=== PATIENT | female | born 1990 | race Caucasian/White ===

== ENCOUNTER 2017-05-29 19:19 | Inpatient (IN) | payer MEDICAID, OTHER ==
[2017-05-29 19:59] LABS: SQUAMOUS EPITHIAL 3 /hpf (0-5); URINE BILIRUBIN NEGATIVE (NEGATIVE); URINE BLOOD NEGATIVE (NEGATIVE); URINE CLARITY Hazy (Clear); URINE COLOR Yellow (YELLOW); URINE GLUCOSE (UA) NORMAL (Normal); URINE LEUKOCYTE ESTERASE NEG Leu/uL (Negative); URINE PROTEIN NEGATIVE (NEGATIVE)
[2017-05-29 20:00] LABS: HCG,QUALITATIVE URINE POSITIVE (NEGATIVE)
[2017-05-29 20:04] LABS: BASO % 0.2 % (0.0-2.0); EOS # 0.2 K/uL (0.0-0.7); EOS % 1.1 % (0.0-4.0); HEMOGLOBIN 11.4 g/dL (11.0-16.0); LYMPH # 2.1 K/uL (1.0-4.3); LYMPH % 12.7 % (20.0-40.0); MEAN CORPUSCULAR HEMOGLOBIN 30.7 pg (27.0-31.0); MEAN CORPUSCULAR HGB CONC 33.7 g/dL (33.0-37.0); MEAN PLATELET VOLUME 8.6 fL (7.2-11.7); MONO # 1.3 K/uL (0.0-0.8); MONO % 7.9 % (0.0-10.0); NEUT # 13.3 K/uL (1.8-7.0); NEUT % 78.1 % (50.0-75.0); NRBC % 0.1 % (0.0-2.0); RBC 3.72 Mil/uL (3.80-5.20); RED CELL DISTRIBUTION WIDTH 14.3 % (11.5-14.5)
[2017-05-29 20:14] LABS: MEAN CELL VOLUME 91.2 fL (81.0-99.0)
[2017-05-29 20:16] LABS: ALB/GLOB RATIO 1.1 (1.0-2.1); ALBUMIN 4.3 g/dL (3.5-5.0); ALT/SGPT 33 U/L (9-52); AST/SGOT 18 U/L (14-36); BLOOD UREA NITROGEN 6 mg/dL (7-17); CALCIUM 9.4 mg/dl (8.6-10.4); GFR AFRICAN-AMERICAN > 60; GFR NON-AFRICAN AMERICAN > 60
[2017-05-29 20:17] LABS: BARBITURATES, UR NEGATIVE (NEGATIVE); BENZODIAZEPINES, UR NEGATIVE (NEGATIVE); OPIATES, UR NEGATIVE (NEGATIVE); PHENCYCLIDINE, UR NEGATIVE (NEGATIVE)
--- NOTE | 2017-05-29 20:33 | C.PDOC ---
History Of Present Illness 26yo female, EGA of 1 week, presents to ED requesting detoxification from percocets. Patient reports last use was 20mg at 9am today. She denies any chest pain, shortness of breath, abdominal pain, suicidal or homicidal ideation. She has no medical complaints. pt states she had us recently, "which did not show anything". on antibiotics for uti. no vomiting. Time Seen by Provider: 05/29/17 19:56 Chief Complaint (Nursing): Psychiatric Evaluation History Per: Patient History/Exam Limitations: no limitations Associated Symptoms: denies: Suicidal Thoughts, Suicidal Plan Past Medical History Reviewed: Historical Data, Nursing Documentation, Vital Signs Vital Signs: Last Vital Signs Temp 98.6 F 05/30/17 16:32 Pulse 93 H 05/30/17 16:32 Resp 18 05/30/17 16:32 BP 128/88 05/30/17 16:32 Pulse Ox 96 05/30/17 16:32 - Medical History PMH: No Chronic Diseases Surgical History: No Surg Hx Family History: States: No Known Family Hx - Social History Hx Alcohol Use: No Hx Substance Use: Yes Review Of Systems Except As Marked, All Systems Reviewed And Found Negative. Constitutional: Negative for: Fever, Chills Cardiovascular: Negative for: Chest Pain Respiratory: Negative for: Shortness of Breath Gastrointestinal: Negative for: Abdominal Pain Psych: Negative for: Suicidal ideation Physical Exam - Physical Exam Appears: Non-toxic, No Acute Distress Skin: Normal Color, Warm, Dry Head: Atraumatic, Normacephalic Eye(s): bilateral: Normal Inspection, PERRL, EOMI Neck: Normal ROM, Supple Chest: Symmetrical Cardiovascular: Rhythm Regular Respiratory: Normal Breath Sounds, No Wheezing Gastrointestinal/Abdominal: Normal Exam, Soft, No Tenderness Back: Normal Inspection Extremity: Normal ROM, No Deformity Neurological/Psych: Oriented x3, Normal Speech, Normal Cognition ED Course And Treatment - Laboratory Results Result Diagrams: 05/29/17 19:58 05/29/17 19:58 O2 Sat by Pulse Oximetry: 97 (RA) Pulse Ox Interpretation: Normal Medical Decision Making Medical Decision Making: Impression: Detox from percocet. Plan: -- Labs -- US Transvaginal Time: [address] Roth OBGYN internal combustion engine assembler who will consult on the patient. noted leukocytosi, abd soft no ttp, pt reports on antibiotics for uti. suspect early , gs visualized., no ys/fp. no cardiopulm complaints. non specific leukocytosis. lungs clear. no vomiting in er. Disposition - Disposition Disposition: HOSPITALIZED Disposition Time: 23:01 Condition: STABLE - Clinical Impression Clinical Impression: Opiate use, Leukocytosis - Scribe Statement The provider has reviewed the documentation as recorded by the Scribe (Francisca Hernández) Provider Attestation: All medical record entries made by the Scribe were at my direction and personally dictated by me. I have reviewed the chart and agree that the record accurately reflects my personal performance of the history, physical exam, medical decision making, and the department course for this patient. I have also personally directed, reviewed, and agree with the discharge instructions and disposition. Decision To Admit - Pt Status Changed To: Hospital Disposition Of: Inpatient - Admit Certification Admit to Inpatient:: After my assessment, the patient will require hospitalization for at least two midnights. This is because of the severity of symptoms shown, intensity of services needed, and/or the medical risk in this patient being treated as an outpatient. - InPatient: Physician Admission Certification: I certify that this patient requires 2 or more midnights of care for the following reason:: needs detox - . Bed Request Type: Detox Admitting Physician: Coby Roblero Patient Diagnosis: Opiate use, Leukocytosis
--- NOTE | 2017-05-29 22:38 | US ---
EXAM: US First Trimester, Transabdominal US , Transvaginal EXAM DATE/TIME: 05/29/2017 8:01 PM CLINICAL HISTORY: 26 years old, female; Pain; Other: Abd pain; LMP: 2-7-18; ; Patient HX: Beta 2567.60; Additional info: Abd pain and TECHNIQUE: Real-time transabdominal and transvaginal obstetrical ultrasound of the maternal pelvis and a first trimester with image documentation. Transvaginal imaging was used for better evaluation of the fetus and adnexa. COMPARISON: There are no prior studies for comparison. FINDINGS: Gestation: There is a small gestational sac in the uterus.Gestational sac has mean diameter 5.5 mm. pole and yolk sac are not yet visible. Uterus: The uterus is anteflexed. Uterus measures approximately 9 x 4 x 5 cm. Endometrium is thickened 15.7 mm in width. There is a nabothian cyst in the cervix. Right ovary: Right ovary measures approximately 3.4 x 2.9 by 3 cm. There is a corpus luteum in the right ovary.There is expected blood flow on Doppler imaging Left ovary: Left ovary measures approximately 3 x 2.3 x 1.6 cm.There is expected blood flow on Doppler imaging Free fluid: There is trace free fluid. Bladder: Bladder is almost empty. IMPRESSION: Intrauterine gestation too early to date; right corpus luteum
[2017-05-30] MEDS ORDERED: Buprenorphine Hydrochloride 2 mg SL ONE ×2 (06:14→08:00)
[2017-05-30] MEDS ORDERED: Buprenorphine Hydrochloride 8 mg SL ONE (08:00)
[2017-05-30] MEDS: Multiple Vitamins Tab PO SCH (09:17)
--- NOTE | 2017-05-30 20:42 | PCM.PSYCH ---
Initial Psychiatric Evaluation - Initial Psychiatric Evaluation Type of Admission: Voluntary Legal Status: Capacity Chief Complaint (in patient's own words): I need help for my Percocet use. I want to stop using Percocet. History of Present Illness and Precipitating Events: Patient is a 26 years old, single, unemployed, female who was admitted for treatment of withdrawing from Percocet. Patient was also more than 4 weeks. Patient reported he was using cannabis since 12 years of age, was using every day, up to 8 g of cannabis daily. Last use reported yesterday. According to patient she was diagnosed with cannabinoid hyperemesis syndrome at [facility]. Also reported using Percocet, started about 4 months ago and was using up to 80- 100 mg of Percocet daily, buying from [facility]. Last use reported yesterday, 30 mg. Patient has history of right knee meniscal repair. Patient was born in [place], has high school graduation, working. Never , has one 7 years old daughter. Lives alone. Height is 5 feet and 4 inches and weight 182 pounds. Current Medications: Active Medications Generic Name Dose Route Start Last Admin Trade Name Freq PRN Reason Stop Dose Admin Acetaminophen 650 mg 05/30/17 01:09 05/30/17 01:35 Tylenol 325mg Tab PO 650 mg Q6 PRN Administration Pain, Mild (1-3) Diphenhydramine HCl 50 mg 05/30/17 01:08 05/30/17 17:14 Benadryl PO 50 mg Q6 PRN Administration Agitation Metoclopramide HCl 5 mg 05/30/17 01:16 05/30/17 01:38 Reglan PO 5 mg Q6 PRN Administration Nausea/Vomiting Multivitamins 1 tab 05/30/17 10:00 05/30/17 09:17 Hexavitamin PO Not Given DAILY JOSEPH Past Psychiatric History - Past Psychiatric History Previous Treatment History: None History of Abuse: None reported History of ETOH/Drug Use: See HPI History of Family Illness: Reported her paternal uncle has history of schizophrenia, mother has history of heroine use, maternal aunt has history of heroine use disorder. Pertinent Medical Hx (Current Medical&Sleep Prob, Allergies): Allergies Allergy/AdvReac Type Severity Reaction Status Date / Time No Known Allergies Allergy Verified 05/29/17 19:36 Bentyl 05/29/17 05/29/17 Protonix 05/29/17 Reglan 05/29/17 Zofran 05/29/17 Review of Systems - Psychiatric Psychiatric: Anxiety Mental Status Examination - Personal Presentation Personal Presentation: Looks stated age - Affect Affect: Other (Appropriate) - Motor Activity Motor Activity: Calm - Reliability in Providing Information Reliability in Providing Information: Fair - Speech Speech: Relevant - Mood Mood: Anxious - Formal Thought Process Formal Thought Process: No Impairment Additional comments: None reported - Hallucinations/Delusions Hallucinations: Other (None reported) Delusions: Other - Obsessions/Compulsions Obsessions: None Compulsions: None - Cognitive Functions Orientation: Person, Place, Situation, Time Sensorium: Alert Abstract Thinking: [place] Estimate of Intelligence: Average Judgement: Intact, as evidence by: Insight regarding need for hospitalization Memory: Recent intact, as evidence by: Ability to recall events of the day, Remote intact, as evidenced by: Ability to recall historical events - Risk Risk: Withdrawal, Diminished functioning - Strength & Assets Inventory Strength & Assets Inventory: Employment status, Cooperative - Limitations Limitations: Living alone DSM 5 DX - DSM 5 DSM 5 Diagnosis: Opiate use disorder severe Cannabis use disorder severe - Recommended/Plan of Treatment Treatment Recommendations and Plan of Treatment: Patient education Supportive therapy CBT for relapse prevention [place] for abstinence Discussed with patient about different treatment options. Initially patient was started on Subutex which was discontinued. Patient was offered methadone maintenance and then referent to methadone maintenance treatment program during her . Patient refused this option. Patient just wanted to have detox from Percocet. Education provided, still patient wanted to have detox from Percocet. We will start methadone taper for opiate withdrawal symptoms. Other when necessary medications. Projected ELOS: 4-5 days Discharge Plan and Discharge Criteria: Patient wants to go to [facility] for follow-up care after discharge from the hospital. - Smoking Cessation Smoking Cessation Initiated: No Reason for not providing: Patient doesn't smoke cigarettes
[2017-05-31] MEDS: Multiple Vitamins Tab PO SCH (09:20)
--- NOTE | 2017-05-31 17:27 | CP.PCM.CON ---
History of Present Illness - History of Present Illness History of Present Illness: Medicine consult note for Dr. Jason Thomas Reason for consult: nausea, vomiting, This is a 26 year old female with PMHx Cannabis Hyperemesis Syndrome who presented for detox from Percocet. Patient states that she has taken it for the past 4 months and will usually take up to 50 mg daily. Patient has been experiencing nausea/vomiting since Friday. Patient states that she went to the ED where she was found with elevated bHCG. She was to return to the ED for follow up in 2 days; however, she returned in a single day. Patient has been experiencing dizziness, nausea, vomiting, and weakness since Friday. Patient has not had much of an appetite, and as a result has not had a bowel movement for a couple of days. PMHx: Cannabis Hyperemesis Syndrome PSHx: Right meniscus repair in 2011 Allergies: NKDA Social: Denies tobacco, alcohol. Smokes marijuana. Takes Percocet 50 mg daily. Family Hx: Denies PMD: [facility] in [place] Executive Director Of Nursing: Patient does not currently have an Executive Director Of Nursing Home medications: Protonix, Bentyl, Reglan. All with unknown doses as the patient cannot remember at this time. Review of Systems - Constitutional Constitutional: absent: Chills, Fever - EENT Eyes: absent: Change in Vision Ears: absent: Decreased Hearing Nose/Mouth/Throat: absent: Nasal Congestion - Cardiovascular Cardiovascular: absent: Chest Pain - Respiratory Respiratory: absent: Dyspnea - Gastrointestinal Gastrointestinal: Constipation, Nausea, Vomiting. absent: Abdominal Pain, Diarrhea - Genitourinary Genitourinary: absent: Dysuria - Musculoskeletal Musculoskeletal: absent: Back Pain - Integumentary Integumentary: absent: Rash - Neurological Neurological: Dizziness, Weakness - Psychiatric Psychiatric: Change in Appetite (decreased) - Endocrine Endocrine: absent: Palpitations Past Patient History - Past Medical History & Family History Past Medical History?: No - Past Social History Smoking Status: Never Smoked - CARDIAC Hx Cardiac Disorders: No Hx Hypertension: No - PULMONARY Hx Tuberculosis: No - NEUROLOGICAL HX Cerebrovascular Accident: No Hx Seizures: No - HEMATOLOGICAL/ONCOLOGICAL Hx Cancer: No Hx Human Immunodeficiency Virus (HIV): No - MUSCULOSKELETAL/RHEUMATOLOGICAL Hx Falls: No - GENITOURINARY/GYNECOLOGICAL Hx Sexually Transmitted Disorders: No - PSYCHIATRIC Hx Substance Use: Yes - SURGICAL HISTORY Hx Orthopedic Surgery: Yes (left knee) - ANESTHESIA Hx Anesthesia: Yes Hx Anesthesia Reactions: No Meds Allergies/Adverse Reactions: Allergies Allergy/AdvReac Type Severity Reaction Status Date / Time No Known Allergies Allergy Verified 05/29/17 19:36 - Medications Medications: Current Medications Acetaminophen (Tylenol 325mg Tab) 650 mg PO Q6 PRN PRN Reason: Pain, Mild (1-3) Last Admin: 05/30/17 01:35 Dose: 650 mg Diphenhydramine HCl (Benadryl) 50 mg PO Q6 PRN PRN Reason: Agitation Last Admin: 05/31/17 04:33 Dose: 50 mg Metoclopramide HCl (Reglan) 10 mg IM Q6H JOSEPH Stop: 06/01/17 17:00 Multivitamins (Hexavitamin) 1 tab PO DAILY [facility] Last Admin: 05/31/17 09:20 Dose: 1 tab Ondansetron HCl (Zofran Inj) 4 mg IM Q6H PRN PRN Reason: Nausea/Vomiting Multivit/Folic Acid/Iron () 1 tab PO DAILY [facility] Physical Exam - Constitutional Appears: No Acute Distress - Head Exam Head Exam: ATRAUMATIC, NORMOCEPHALIC - Eye Exam Eye Exam: EOMI, PERRL - ENT Exam ENT Exam: Mucous Membranes Moist Additional comments: Dry nasal turbinates and lips; however, oral mucosa was moist - Respiratory Exam Respiratory Exam: Clear to Auscultation Bilateral, NORMAL BREATHING PATTERN. absent: Rales, Rhonchi, Wheezes - Cardiovascular Exam Cardiovascular Exam: REGULAR RHYTHM, +S1, +S2 - GI/Abdominal Exam GI & Abdominal Exam: Normal Bowel Sounds, Soft. absent: Tenderness - Extremities Exam Extremities exam: Positive for: normal capillary refill, pedal pulses present. Negative for: pedal edema, tenderness - Back Exam Back exam: absent: CVA tenderness (L), CVA tenderness (R) - Neurological Exam Neurological exam: Alert, Oriented x3 - Psychiatric Exam Psychiatric exam: Anxious - Skin Skin Exam: Dry, Warm Results - Vital Signs Recent Vital Signs: Last Vital Signs Temp 97.8 F 05/31/17 14:25 Pulse 76 05/31/17 14:25 Resp 18 05/31/17 14:25 BP 112/72 05/31/17 14:25 Pulse Ox 100 05/31/17 14:25 - Labs Result Diagrams: 05/31/17 17:35 05/29/17 19:58 Assessment & Plan - Assessment and Plan (Free Text) Plan: Nausea/vomiting Reglan 10 mg IM Q6H scheduled for the next 24 hours. Zofran 4 mg IM Q6H prn for breakthrough nausea/vomiting Would recommend Executive Director Of Nursing consult Patient will need assistance with finding an Executive Director Of Nursing to oversee her vitamins once daily were started Leukocytosis Likely from withdrawal from Percocet Morning labs f/u blood cultures and urine cultures Percocet Detox As per psychiatry Discussed with Dr. Jason Burrows PGY-1
[2017-05-31 17:38] LABS: BASO # 0.1 K/uL (0.0-0.2); BASO % 0.3 % (0.0-2.0); EOS # 0.2 K/uL (0.0-0.7); EOS % 0.9 % (0.0-4.0); HEMOGLOBIN 12.7 g/dL (11.0-16.0); LYMPH # 3.2 K/uL (1.0-4.3); LYMPH % 15.6 % (20.0-40.0); MEAN CELL VOLUME 91.3 fL (81.0-99.0); MEAN CORPUSCULAR HEMOGLOBIN 30.6 pg (27.0-31.0); MEAN CORPUSCULAR HGB CONC 33.5 g/dL (33.0-37.0); MEAN PLATELET VOLUME 8.8 fL (7.2-11.7); MONO # 1.5 K/uL (0.0-0.8); MONO % 7.3 % (0.0-10.0); NEUT # 15.8 K/uL (1.8-7.0); NEUT % 75.9 % (50.0-75.0); NRBC % 0.1 % (0.0-2.0); RBC 4.14 Mil/uL (3.80-5.20); RED CELL DISTRIBUTION WIDTH 14.1 % (11.5-14.5); WHITE BLOOD COUNT 20.8 K/uL (4.8-10.8)
--- NOTE | 2017-05-31 18:33 | PCM.PYCHPN ---
Psychiatric Progress Note - Psychiatric Progress Note Patient seen today, length of contact: 15 minutes Patient Chief Complaint: I'm feeling little better Problems Identified/Issues Discussed: Patient seen, chart reviewed, case discussed with the staff Issues related to illness and treatment were discussed with the patient. Reported compliant with treatment with no adverse affects. Reported feeling little better with treatment. Still has withdrawal symptoms. According to staff patient vomited about 2 times. Medical consult was called and medical team is on the case. Mood reported as anxious. Affect appropriate. Patient was awake alert oriented 3. Denied any delusions, auditory or visual hallucinations, suicidal ideations or homicidal ideation at the time of evaluation. Medical Problems: None reported Diagnostic Results: Reviewed DSM 5 Symptoms Update: Some improvement with treatment Medication Change: No Medical Record Reviewed: Yes Consults ordered or reviewed: Reviewed Mental Status Examination - Cognitive Function Orientation: Person, Place, Situation, Time Memory: Intact Attention: WNL Concentration: WNL Association: [facility] Fund of Knowledge: [facility] Decription of patient's judgement and insights: Fair - Mood Mood: Anxious (Less than before) - Affect Affect: Other (Appropriate) - Speech Speech: Appropriate - Formal Thought Process Formal Thought Process: No Impairment Psychotic Thoughts and Behaviors: None - Suicidal Ideation Suicidal Ideation: No - Homicidal Ideation Homicidal Ideation: No Goal/Treatment Plan - Goal/Treatment Plan Need for Continued Stay: Remain at risks for inpatient hospitalization, Discharge may exacerbated symptoms, Severe functional impairment Progress Toward Problem(s) and Goals/Treatment Plan: Patient education Supportive therapy CBT for lasts prevention [place] for abstinence Continue treatment as before Estimated Date of D/C: 06/02/17 - Smoking Cessation Smoking Cessation Initiated: No Reason for not providing: Patient doesn't smoke cigarettes
[2017-05-31] MEDS ORDERED: Potassium Chloride 20 mEq/15 ml LIQ UD PO ONE (18:48)
[2017-06-01 08:51] LABS: BASO % 0.4 % (0.0-2.0); EOS # 0.2 K/uL (0.0-0.7); EOS % 1.1 % (0.0-4.0); HEMOGLOBIN 12.1 g/dL (11.0-16.0); LYMPH # 2.2 K/uL (1.0-4.3); MEAN CELL VOLUME 91.2 fL (81.0-99.0); MEAN PLATELET VOLUME 9.3 fL (7.2-11.7); NEUT # 10.6 K/uL (1.8-7.0); NEUT % 75.5 % (50.0-75.0); RBC 3.9 Mil/uL (3.80-5.20); RED CELL DISTRIBUTION WIDTH 14.3 % (11.5-14.5); WHITE BLOOD COUNT 14.1 K/uL (4.8-10.8)
[2017-06-01 09:11] LABS: ALB/GLOB RATIO 1.1 (1.0-2.1); ALBUMIN 4.2 g/dL (3.5-5.0); ALT/SGPT 27 U/L (9-52); AST/SGOT 22 U/L (14-36); BLOOD UREA NITROGEN 6 mg/dL (7-17); CALCIUM 8.9 mg/dl (8.6-10.4); GFR AFRICAN-AMERICAN > 60; GFR NON-AFRICAN AMERICAN > 60
[2017-06-01] MEDS ORDERED: Potassium Chloride 20 mEq/15 ml LIQ UD PO ONE (09:18)
[2017-06-01] MEDS ORDERED: Prenatal Multivit/Folic Acid/Iron Tab PO SCH ×2 (10:00)
[2017-06-01] MEDS: Multiple Vitamins Tab PO SCH (10:15)
--- NOTE | 2017-06-01 14:53 | CP.PCM.PN ---
<Tra Burrows - Last Filed: 06/01/17 14:50> Subjective - Date & Time of Evaluation Date of Evaluation: 06/01/17 Time of Evaluation: 11:00 - Subjective Subjective: Medicine progress note for Dr. Jason Thomas Patient seen and examined. Patient's nausea/vomiting has improved since yesterday. She was seen eating a meal and is in better spirits today. Patient did have an episode of nausea but this was transient. Patient denies any other acute complaints at this time. Objective - Vital Signs/Intake and Output Vital Signs (last 24 hours): Temp Pulse Resp BP Pulse Ox 98.6 F 98 H 20 113/74 98 06/01/17 13:58 06/01/17 13:58 06/01/17 13:58 06/01/17 13:58 06/01/17 13:58 - Medications Medications: Current Medications Acetaminophen (Tylenol 325mg Tab) 650 mg PO Q6 PRN PRN Reason: Pain, Mild (1-3) Last Admin: 05/30/17 01:35 Dose: 650 mg Diphenhydramine HCl (Benadryl) 50 mg PO Q6 PRN PRN Reason: Agitation Last Admin: 06/01/17 10:21 Dose: 50 mg Metoclopramide HCl (Reglan) 10 mg IM Q6H JOSEPH Stop: 06/01/17 17:00 Last Admin: 06/01/17 10:23 Dose: Not Given Multivitamins (Hexavitamin) 1 tab PO DAILY [facility] Last Admin: 06/01/17 10:15 Dose: 1 tab Ondansetron HCl (Zofran Inj) 4 mg IM Q6H PRN PRN Reason: Nausea/Vomiting Last Admin: 06/01/17 08:23 Dose: 4 mg - Labs Labs: 06/01/17 08:17 06/01/17 08:17 - Additional Findings Additional findings: - Constitutional Appears: No Acute Distress - Head Exam Head Exam: ATRAUMATIC, NORMOCEPHALIC - Eye Exam Eye Exam: EOMI, PERRL - ENT Exam ENT Exam: Mucous Membranes Moist - Respiratory Exam Respiratory Exam: Clear to Auscultation Bilateral, NORMAL BREATHING PATTERN. absent: Rales, Rhonchi, Wheezes - Cardiovascular Exam Cardiovascular Exam: REGULAR RHYTHM, +S1, +S2 - GI/Abdominal Exam GI & Abdominal Exam: Normal Bowel Sounds, Soft. absent: Tenderness - Extremities Exam Extremities exam: Positive for: normal capillary refill, pedal pulses present. Negative for: pedal edema, tenderness - Back Exam Back exam: absent: CVA tenderness (L), CVA tenderness (R) - Neurological Exam Neurological exam: Alert, Oriented x3 - Psychiatric Exam Psychiatric exam: Anxious - Skin Skin Exam: Dry, Warm Assessment and Plan - Assessment and Plan (Free Text) Plan: Nausea/vomiting Reglan 10 mg IM Q6H scheduled for the next 24 hours. Zofran 4 mg IM Q6H prn for breakthrough nausea/vomiting Virology Teacher consult was consulted, help appreciated If patient will not follow up with OB at this hospital, she is free to follow up with her clinic [facility] where the patient states that they have OB available there in the clinic. vitamins daily Leukocytosis Likely from withdrawal from Percocet Downtrending on morning labs f/u blood cultures and urine cultures Percocet Detox As per psychiatry Disposition: Medicine team is signing off on this patient. If blood or urine cultures come back positive, please notify medicine team. Discussed with Dr. Jason Burrows PGY-1 <Harmeet Thomas - Last Filed: 06/01/17 17:22> Objective - Vital Signs/Intake and Output Vital Signs (last 24 hours): Temp Pulse Resp BP Pulse Ox 98.7 F 91 H 18 107/69 97 06/01/17 16:23 06/01/17 16:23 06/01/17 16:23 06/01/17 16:23 06/01/17 16:23 - Medications Medications: Current Medications Acetaminophen (Tylenol 325mg Tab) 650 mg PO Q6 PRN PRN Reason: Pain, Mild (1-3) Last Admin: 05/30/17 01:35 Dose: 650 mg Diphenhydramine HCl (Benadryl) 50 mg PO Q6 PRN PRN Reason: Agitation Last Admin: 06/01/17 10:21 Dose: 50 mg Multivitamins (Hexavitamin) 1 tab PO DAILY JOSEPH Last Admin: 06/01/17 10:15 Dose: 1 tab Ondansetron HCl (Zofran Inj) 4 mg IM Q6H PRN PRN Reason: Nausea/Vomiting Last Admin: 06/01/17 08:23 Dose: 4 mg - Labs Labs: 06/01/17 08:17 06/01/17 08:17 Attending/Attestation - Attestation I have personally seen and examined this patient.: Yes I have fully participated in the care of the patient.: Yes I have reviewed all pertinent clinical information, including history, physical exam and plan: Yes Notes (Text): 06/01/17 17:20 Patient was seen and examined shortly after resident Patient is tolerating her meals although she did have some nausea after breakfast this morning but NO vomiting. She was advised to make sure that she does not eat quickly and do not eat until she is full. She stated that she had enough vitamins at home. She understands to follow up with the [facility] in [place] where she assures me that she will follow up with Virology Teacher there. If there any more issues please do not hesitate to contact the Medicine Team. Harmeet Thomas D.O.
--- NOTE | 2017-06-01 22:24 | PCM.PYCHPN ---
Psychiatric Progress Note - Psychiatric Progress Note Patient seen today, length of contact: 15 Minutes Patient Chief Complaint: I'm feeling much better Problems Identified/Issues Discussed: Patient seen, chart reviewed, case discussed with the staff Issues related to illness and treatment were discussed with the patient. Reported compliant with treatment with no adverse affects. Reported feeling much better with treatment. Patient had no vomiting and was feeling much better. Aftercare discussed with the patient including follow-up with [employer]. Patient agreed with the plan. Mood reported as good. Affect appropriate. Patient was calm and cooperative. Awake alert and oriented 3. Denied any delusions, auditory or visual hallucinations, suicidal ideations or homicidal ideation at the time of evaluation. Medical Problems: None reported Diagnostic Results: Reviewed DSM 5 Symptoms Update: Improving with treatment Medication Change: No Medical Record Reviewed: Yes Consults ordered or reviewed: Reviewed Mental Status Examination - Cognitive Function Orientation: Person, Place, Situation, Time Memory: Intact Attention: WNL Concentration: WNL Association: WNL Fund of Knowledge: WN Decription of patient's judgement and insights: Fair - Mood Mood: Neutral - Affect Affect: Other (Appropriate) - Speech Speech: Appropriate - Formal Thought Process Formal Thought Process: No Impairment Psychotic Thoughts and Behaviors: None - Suicidal Ideation Suicidal Ideation: No - Homicidal Ideation Homicidal Ideation: No Goal/Treatment Plan - Goal/Treatment Plan Need for Continued Stay: Remain at risks for inpatient hospitalization, Discharge may exacerbated symptoms, Severe functional impairment Progress Toward Problem(s) and Goals/Treatment Plan: Patient education Supportive therapy CBT for relapse prevention [place] for abstinence Continue treatment as before Estimated Date of D/C: 06/02/17 - Smoking Cessation Smoking Cessation Initiated: No
[2017-06-02] MEDS ORDERED: DiphenhydrAMINE 50 mg/ml Inj IVP STA ×2 (01:25→03:30)
--- NOTE | 2017-06-02 01:30 | CP.PCM.HP ---
<Mariam Toussaint - Last Filed: 06/02/17 02:14> History of Present Illness - History of Present Illness History of Present Illness: HPI: 26 year old female who is 6weeks 4 days with past medical history of Cannabis Hyperemesis Syndrome who was admitted for detox from Percocet. Patient is also currently 4 weeks which was found in the ER. Patient states she usually uses about 60mg of Perocet daily for the past 4 months. She states she is now having diffuse abdominal pain that started this evening. Patient states she cannot eat or drink anything as she just vomits everything. Patient states she has been prior which she was hospitalized many times for hyperemesis. She states she had a small bowel movement today and is passing flatus. She denies vaginal bleeding, dysuria or hematuria. 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 Smokes marijuana. Takes Percocet 60 mg daily. Family History: Denies Present on Admission - Present on Admission Any Indicators Present on Admission: No Review of Systems - Constitutional Constitutional: absent: Chills, Headache - Cardiovascular Cardiovascular: absent: Chest Pain, Dyspnea - Respiratory Respiratory: absent: Dyspnea - Gastrointestinal Gastrointestinal: Abdominal Pain, Nausea, Vomiting. absent: Constipation, Diarrhea - Genitourinary Genitourinary: absent: Dysuria, Hematuria - Psychiatric Psychiatric: Anxiety Past Patient History - Past Medical History & Family History Past Medical History?: No - Past Social History Smoking Status: Never Smoked - CARDIAC Hx Cardiac Disorders: No Hx Hypertension: No - PULMONARY Hx Tuberculosis: No - NEUROLOGICAL HX Cerebrovascular Accident: No Hx Seizures: No - HEMATOLOGICAL/ONCOLOGICAL Hx Cancer: No Hx Human Immunodeficiency Virus (HIV): No - MUSCULOSKELETAL/RHEUMATOLOGICAL Hx Falls: No - GENITOURINARY/GYNECOLOGICAL Hx Sexually Transmitted Disorders: No - PSYCHIATRIC Hx Substance Use: Yes - SURGICAL HISTORY Hx Orthopedic Surgery: Yes (left knee) - ANESTHESIA Hx Anesthesia: Yes Hx Anesthesia Reactions: No Meds Allergies/Adverse Reactions: Allergies Allergy/AdvReac Type Severity Reaction Status Date / Time No Known Allergies Allergy Verified 05/29/17 19:36 Physical Exam - Constitutional Appears: In Acute Distress - Head Exam Head Exam: ATRAUMATIC, NORMAL INSPECTION - Eye Exam Eye Exam: EOMI, Normal appearance - ENT Exam ENT Exam: Mucous Membranes Moist - Respiratory Exam Respiratory Exam: Clear to Auscultation Bilateral, NORMAL BREATHING PATTERN - Cardiovascular Exam Cardiovascular Exam: REGULAR RHYTHM, +S1, +S2 - GI/Abdominal Exam GI & Abdominal Exam: Normal Bowel Sounds, Soft, Tenderness (diffuse abdominal tenderness). absent: Guarding - Extremities Exam Extremities exam: Positive for: normal inspection - Back Exam Back exam: absent: CVA tenderness (L), CVA tenderness (R) - Neurological Exam Neurological exam: Alert, Oriented x3 - Psychiatric Exam Psychiatric exam: Anxious - Skin Skin Exam: Dry, Intact, Normal Color Results - Vital Signs Recent Vital Signs: Last Vital Signs Temp 98.7 F 06/01/17 16:23 Pulse 91 H 06/01/17 16:23 Resp 18 06/01/17 16:23 BP 107/69 06/01/17 16:23 Pulse Ox 97 06/01/17 16:23 - Labs Result Diagrams: 06/01/17 08:17 06/01/17 08:17 Labs: Laboratory Results - last 24 hr 06/01/17 06/01/17 08:17 08:17 WBC 14.1 H RBC 3.90 Hgb 12.1 Hct 35.6 MCV 91.2 MCH 31.0 MCHC 34.0 RDW 14.3 Plt Count 272 MPV 9.3 Neut % (Auto) 75.5 H Lymph % (Auto) 16.0 L [place] % (Auto) 7.0 Eos % (Auto) 1.1 Baso % (Auto) 0.4 Neut # (Auto) 10.6 H Lymph # (Auto) 2.2 [place] # (Auto) 1.0 H Eos # (Auto) 0.2 Baso # (Auto) 0.0 Sodium 135 Potassium 3.2 L Chloride 98 Carbon Dioxide 21 L Anion Gap 19 BUN 6 L Creatinine 0.5 L Est GFR ( Amer) > 60 Est GFR (Non-Af Amer) > 60 Random Glucose 121 H Calcium 8.9 Total Bilirubin 0.4 AST 22 ALT 27 Alkaline Phosphatase 63 Total Protein 7.9 Albumin 4.2 Globulin 3.7 Albumin/Globulin Ratio 1.1 Assessment & Plan - Assessment and Plan (Free Text) Assessment: 1.) Nausea/vomiting - NS @100cc/hr - Zofran 4mg IV - f/u AM labs 2.) Abdominal Pain - f/u abdominal US - Tylenol PRN 3.) 6 weeks 4 days from [facility] 04/17/17 - Preg 1st trimester US (05/29/17): Intrauterine gestation too early to date; right corpus luteum - continue vitamins once daily - betaHCG (05/29/17): 2567.60 - f/u betaHCG 4.) Leukocytosis Likely from withdrawal from Percocet 5.) Percocet Detox Psych Consult: Dr. Roblero --> help appreciated Case discussed with Dr. Susana Toussaitn PGY-1 <Rogerio Meza P - Last Filed: 06/02/17 08:17> Results - Vital Signs Recent Vital Signs: Last Vital Signs Temp 98.1 F 06/02/17 07:25 Pulse 90 06/02/17 07:25 Resp 20 06/02/17 07:25 BP 157/105 H 06/02/17 07:25 Pulse Ox 96 06/02/17 07:25 - Labs Result Diagrams: 06/02/17 06:47 06/02/17 06:47 Labs: Laboratory Results - last 24 hr 06/01/17 06/01/17 06/02/17 08:17 08:17 06:47 WBC 14.1 H 28.4 H D RBC 3.90 3.96 Hgb 12.1 12.2 Hct 35.6 36.2 MCV 91.2 91.6 MCH 31.0 30.8 MCHC 34.0 33.7 RDW 14.3 13.8 Plt Count 272 281 MPV 9.3 9.2 Neut % (Auto) 75.5 H 94.7 H Lymph % (Auto) 16.0 L 3.1 L [place] % (Auto) 7.0 1.9 Eos % (Auto) 1.1 0.0 Baso % (Auto) 0.4 0.3 Neut # (Auto) 10.6 H 26.9 H Lymph # (Auto) 2.2 0.9 L [place] # (Auto) 1.0 H 0.5 Eos # (Auto) 0.2 0.0 Baso # (Auto) 0.0 0.1 Sodium 135 Potassium 3.2 L Chloride 98 Carbon Dioxide 21 L Anion Gap 19 BUN 6 L Creatinine 0.5 L Est GFR ( Amer) > 60 Est GFR (Non-Af Amer) > 60 Random Glucose 121 H Calcium 8.9 Phosphorus Magnesium Total Bilirubin 0.4 AST 22 ALT 27 Alkaline Phosphatase 63 Total Protein 7.9 Albumin 4.2 Globulin 3.7 Albumin/Globulin Ratio 1.1 06/02/17 06:47 WBC RBC Hgb Hct MCV MCH MCHC RDW Plt Count MPV Neut % (Auto) Lymph % (Auto) [place] % (Auto) Eos % (Auto) Baso % (Auto) Neut # (Auto) Lymph # (Auto) [place] # (Auto) Eos # (Auto) Baso # (Auto) Sodium 138 Potassium 3.7 Chloride 98 Carbon Dioxide 22 Anion Gap 21 H BUN 7 Creatinine 0.5 L Est GFR ( Amer) > 60 Est GFR (Non-Af Amer) > 60 Random Glucose 120 H Calcium 9.4 Phosphorus 3.1 Magnesium 1.9 Total Bilirubin 0.6 AST 21 ALT 25 Alkaline Phosphatase 67 Total Protein 8.7 H Albumin 4.6 Globulin 4.0 H Albumin/Globulin Ratio 1.1 Attending/Attestation - Attestation I have personally seen and examined this patient.: Yes I have fully participated in the care of the patient.: Yes I have reviewed all pertinent clinical information: Yes Notes (Text): 06/02/17 08:14 Patient has abd pain but abd exam is benign, vomiting, retching, DD of hyperemesiss gravidum with opiod withdrawal Plan Transfer to medical floor PPI IVF Zofran Methadone Quantitative beta hcg Abd usg OB f/u as needed.
[2017-06-02 03:18] VITALS: RESP 20
[2017-06-02] MEDS: Sodium Chloride 0.9% 1,000 ML IV SCH ×2 (03:49→11:40)
[2017-06-02 06:50] LABS: BASO # 0.1 K/uL (0.0-0.2); BASO % 0.3 % (0.0-2.0); HEMOGLOBIN 12.2 g/dL (11.0-16.0); LYMPH # 0.9 K/uL (1.0-4.3); LYMPH % 3.1 % (20.0-40.0); MEAN CELL VOLUME 91.6 fL (81.0-99.0); MEAN CORPUSCULAR HEMOGLOBIN 30.8 pg (27.0-31.0); MEAN CORPUSCULAR HGB CONC 33.7 g/dL (33.0-37.0); MEAN PLATELET VOLUME 9.2 fL (7.2-11.7); MONO # 0.5 K/uL (0.0-0.8); MONO % 1.9 % (0.0-10.0); NEUT # 26.9 K/uL (1.8-7.0); NEUT % 94.7 % (50.0-75.0); PLATELET COUNT 281 K/uL (130-400); RBC 3.96 Mil/uL (3.80-5.20); RED CELL DISTRIBUTION WIDTH 13.8 % (11.5-14.5); WHITE BLOOD COUNT 28.4 K/uL (4.8-10.8)
[2017-06-02 07:02] LABS: ALB/GLOB RATIO 1.1 (1.0-2.1); ALBUMIN 4.6 g/dL (3.5-5.0); ALT/SGPT 25 U/L (9-52); AST/SGOT 21 U/L (14-36); BLOOD UREA NITROGEN 7 mg/dL (7-17); CALCIUM 9.4 mg/dl (8.6-10.4); GFR AFRICAN-AMERICAN > 60; GFR NON-AFRICAN AMERICAN > 60
[2017-06-02 08:13] VITALS: BP 157/105; PULSE 90; TEMP 98.1; O2SAT 96
--- NOTE | 2017-06-02 09:08 | US ---
Abdominal ultrasound History: Abdominal pain Comparison: None available. Technique: Real-time sonography was performed through the abdomen. Findings: Liver: Prominent measuring 17.3 centimeters in length. Increased echogenicity of the hepatic parenchymal cortex suggestive for fatty infiltration versus hepatic parenchymal disease. Clinical correlation. Gallbladder: Echogenic sludge and or possible small calculi. Normal wall thickness of 1.8 millimeters. Negative sonographic Corbin's sign. Common bile duct measures 3.8 millimeters, within normal limits. Limited visualization of the pancreas. Spleen measures 8.6 centimeters in length, within normal limits. Visualized aorta and IVC are preserved. Right kidney: 10.9 x 4.6 x 5.3 centimeters. No calculi or hydronephrosis. Left Kidney: 11.4 x 5.3 x 3.7 centimeters. No calculi or hydronephrosis. Limited study secondary to noncooperative patient. Impression: Limited study secondary to uncooperative patient. Prominent liver with diffuse increased echogenicity of the hepatic parenchymal cortex suggestive for fatty infiltration versus hepatic parenchymal disease. Clinical correlation. Cholelithiasis and sludge in the gallbladder. Normal wall thickness. Negative sonographic Corbin's sign. Limited visualization of the pancreas.
[2017-06-02] MEDS: Multiple Vitamins Tab PO SCH (09:34)
[2017-06-02 09:37] LABS: LYMPHOCYTE 6 % (20-40); MONOCYTE 4 % (0-10); NEUTROPHIL 90 % (50-75); PLATELET ESTIMATE NORMAL (NORMAL); TOTAL CELLS COUNTED 100
[2017-06-02] MEDS ORDERED: DiphenhydrAMINE 50 mg/ml Inj IVP PRN ×2 (09:55→11:15)
--- NOTE | 2017-06-02 10:10 | CP.PCM.PN ---
Subjective - Date & Time of Evaluation Date of Evaluation: 06/02/17 Time of Evaluation: 10:17 - Subjective Subjective: Progress Note: Patient seen and examined at bedside yelling for pain medication. Patient seems distraught. Patient and nursing staff report vomiting and not tolerating PO benadryl. Patient denies fever, chills, chest pain, leg swelling. Objective - Vital Signs/Intake and Output Vital Signs (last 24 hours): Temp Pulse Resp BP Pulse Ox 98.1 F 90 20 157/105 H 96 06/02/17 07:25 06/02/17 07:25 06/02/17 07:25 06/02/17 07:25 06/02/17 07:25 - Medications Medications: Current Medications Acetaminophen (Tylenol 325mg Tab) 650 mg PO Q6 PRN PRN Reason: Pain, Mild (1-3) Last Admin: 06/02/17 00:49 Dose: 650 mg Diphenhydramine HCl (Benadryl) 50 mg IVP Q8H PRN PRN Reason: Agitation Sodium Chloride (Sodium Chloride 0.9%) 1,000 mls @ 100 mls/hr IV .Q10H [facility] Last Admin: 06/02/17 03:49 Dose: 100 mls/hr Metoclopramide HCl (Reglan) 10 mg IVP Q6H PRN PRN Reason: Nausea/Vomiting Multivitamins (Hexavitamin) 1 tab PO DAILY [facility] Last Admin: 06/02/17 09:34 Dose: 1 tab Ondansetron HCl (Zofran Inj) 4 mg IM Q6H PRN PRN Reason: Nausea/Vomiting Last Admin: 06/01/17 21:49 Dose: 4 mg - Labs Labs: 06/02/17 06:47 06/02/17 06:47 - Constitutional Appears: Non-toxic, No Acute Distress - Head Exam Head Exam: ATRAUMATIC, NORMAL INSPECTION, NORMOCEPHALIC - Eye Exam Eye Exam: EOMI, Normal appearance Pupil Exam: NORMAL ACCOMODATION, PERRL - ENT Exam ENT Exam: Mucous Membranes Moist, Normal Exam - Neck Exam Neck Exam: Full ROM - Respiratory Exam Respiratory Exam: NORMAL BREATHING PATTERN. absent: Accessory Muscle Use - Cardiovascular Exam Cardiovascular Exam: Bradycardia, REGULAR RHYTHM, +S1, +S2. absent: Tachycardia - GI/Abdominal Exam GI & Abdominal Exam: Distended, Soft. absent: Guarding, Rigid, Tenderness - Back Exam Back Exam: Full ROM, NORMAL INSPECTION - Neurological Exam Neurological Exam: Alert, Awake, CN II-XII Intact, Oriented x3 - Psychiatric Exam Psychiatric exam: Normal Affect, Normal Mood - Skin Skin Exam: Dry, Intact, Pallor Assessment and Plan - Assessment and Plan (Free Text) Assessment: 26F 6 week female presents for detox from percocet 60mh POQD and was brought from psych to the floor for abdominal pain, nausea, vomiting. 1.) Nausea/vomiting - NS @100cc/hr - Zofran 4mg IV Q6H - Reglan 10mg IV Q6H PRN nausea vomiting - f/u AM labs 2.) Abdominal Pain - f/u abdominal US - Tylenol PRN 3.) 6 weeks 4 days from [facility] 04/17/17 - Preg 1st trimester US (05/29/17): Intrauterine gestation too early to date; right corpus luteum - continue vitamins once daily - betaHCG (05/29/17): 2567.60 - f/u betaHCG 4.) Leukocytosis Likely from withdrawal from Percocet 5.) Percocet Detox Psych Consult: Dr. Osbaldo Benjamin for agitation PO switched to IV, to switch back to oral when patient can tolerate PO medication discussed with Dr. Marcial Pozo, DO PGY1
--- NOTE | 2017-06-02 15:20 | CP.PCM.DIS ---
<Sri Pozo - Last Filed: 06/02/17 15:18> Provider - Provider Date of Admission: 05/29/17 22:55 Attending physician: Uma Ceja MD Consults: DR Roblero Time Spent in preparation of Discharge (in minutes): 35 Hospital Course - Lab Results Lab Results: Micro Results 05/31/17 20:00 Blood Blood Culture - Preliminary NO GROWTH AFTER 24 HOURS 05/31/17 19:30 Blood Blood Culture - Preliminary NO GROWTH AFTER 24 HOURS Most Recent Lab Values WBC 28.4 K/uL (4.8-10.8) H D 06/02/17 06:47 RBC 3.96 Mil/uL (3.80-5.20) 06/02/17 06:47 Hgb 12.2 g/dL (11.0-16.0) 06/02/17 06:47 Hct 36.2 % (34.0-47.0) 06/02/17 06:47 MCV 91.6 fL (81.0-99.0) 06/02/17 06:47 MCH 30.8 pg (27.0-31.0) 06/02/17 06:47 MCHC 33.7 g/dL (33.0-37.0) 06/02/17 06:47 RDW 13.8 % (11.5-14.5) 06/02/17 06:47 Plt Count 281 K/uL (130-400) 06/02/17 06:47 MPV 9.2 fL (7.2-11.7) 06/02/17 06:47 Neut % (Auto) 94.7 % (50.0-75.0) H 06/02/17 06:47 Lymph % (Auto) 3.1 % (20.0-40.0) L 06/02/17 06:47 [place] % (Auto) 1.9 % (0.0-10.0) 06/02/17 06:47 Eos % (Auto) 0.0 % (0.0-4.0) 06/02/17 06:47 Baso % (Auto) 0.3 % (0.0-2.0) 06/02/17 06:47 Neut # (Auto) 26.9 K/uL (1.8-7.0) H 06/02/17 06:47 Lymph # (Auto) 0.9 K/uL (1.0-4.3) L 06/02/17 06:47 [place] # (Auto) 0.5 K/uL (0.0-0.8) 06/02/17 06:47 Eos # (Auto) 0.0 K/uL (0.0-0.7) 06/02/17 06:47 Baso # (Auto) 0.1 K/uL (0.0-0.2) 06/02/17 06:47 Neutrophils % (Manual) 90 % (50-75) H 06/02/17 06:47 Lymphocytes % (Manual) 6 % (20-40) L 06/02/17 06:47 Monocytes % (Manual) 4 % (0-10) 06/02/17 06:47 Platelet Estimate Normal (NORMAL) 06/02/17 06:47 RBC Morphology Normal 06/02/17 06:47 Sodium 138 mmol/L (132-148) 06/02/17 06:47 Potassium 3.7 mmol/L (3.6-5.2) 06/02/17 06:47 Chloride 98 mmol/L (98-107) 06/02/17 06:47 Carbon Dioxide 22 mmol/L (22-30) 06/02/17 06:47 Anion Gap 21 (10-20) H 06/02/17 06:47 BUN 7 mg/dL (7-17) 06/02/17 06:47 Creatinine 0.5 mg/dL (0.7-1.2) L 06/02/17 06:47 Est GFR ( Amer) > 60 06/02/17 06:47 Est GFR (Non-Af Amer) > 60 06/02/17 06:47 Random Glucose 120 mg/dL (65-105) H 06/02/17 06:47 Calcium 9.4 mg/dl (8.6-10.4) 06/02/17 06:47 Phosphorus 3.1 mg/dL (2.5-4.5) 06/02/17 06:47 Magnesium 1.9 mg/dL (1.6-2.3) 06/02/17 06:47 Total Bilirubin 0.6 mg/dL (0.2-1.3) 06/02/17 06:47 AST 21 U/L (14-36) 06/02/17 06:47 ALT 25 U/L (9-52) 06/02/17 06:47 Alkaline Phosphatase 67 U/L (38-126) 06/02/17 06:47 Total Protein 8.7 g/dL (6.3-8.3) H 06/02/17 06:47 Albumin 4.6 g/dL (3.5-5.0) 06/02/17 06:47 Globulin 4.0 gm/dL (2.2-3.9) H 06/02/17 06:47 Albumin/Globulin Ratio 1.1 (1.0-2.1) 06/02/17 06:47 Beta HCG, Quant 8494.90 mIU/ML 06/02/17 06:47 Urine Color Yellow (YELLOW) 05/29/17 19:49 Urine Clarity Hazy (Clear) 05/29/17 19:49 Urine pH 6.0 (5.0-8.0) 05/29/17 19:49 Ur Specific [place] 1.019 (1.003-1.030) 05/29/17 19:49 Urine Protein Negative mg/dL (NEGATIVE) 05/29/17 19:49 Urine Glucose (UA) Normal mg/dL (Normal) 05/29/17 19:49 Urine Ketones Trace mg/dL (NEGATIVE) 05/29/17 19:49 Urine Blood Negative (NEGATIVE) 05/29/17 19:49 Urine Nitrate Negative (NEGATIVE) 05/29/17 19:49 Urine Bilirubin Negative (NEGATIVE) 05/29/17 19:49 Urine Urobilinogen 2.0 mg/dL (0.2-1.0) H 05/29/17 19:49 Ur Leukocyte Esterase Neg [place]/uL (Negative) 05/29/17 19:49 Urine WBC (Auto) < 1 /hpf (0-5) 05/29/17 19:49 Urine RBC (Auto) 1 /hpf (0-3) 05/29/17 19:49 Ur Squamous Epith Cells 3 /hpf (0-5) 05/29/17 19:49 Urine HCG, Qual Positive (NEGATIVE) 05/29/17 19:49 Urine Opiates Screen Negative (NEGATIVE) 05/29/17 19:49 Urine Methadone Screen Negative (NEGATIVE) 05/29/17 19:49 Ur Barbiturates Screen Negative (NEGATIVE) 05/29/17 19:49 Ur Phencyclidine Scrn Negative (NEGATIVE) 05/29/17 19:49 Ur Amphetamines Screen Negative (NEGATIVE) 05/29/17 19:49 U Benzodiazepines Scrn Negative (NEGATIVE) 05/29/17 19:49 U Oth Cocaine Metabols Negative (NEGATIVE) 05/29/17 19:49 U Cannabinoids Screen Positive (NEGATIVE) H 05/29/17 19:49 Alcohol, Quantitative < 10 mg/dl (0-10) 05/29/17 19:58 - Hospital Course Hospital Course: HPI: 26 year old female who is 6weeks 4 days with past medical history of Cannabis Hyperemesis Syndrome who was admitted for detox from Percocet. Patient is also currently 4 weeks which was found in the ER. Patient states she usually uses about 60mg of Perocet daily for the past 4 months. She states she is now having diffuse abdominal pain that started this evening. Patient states she cannot eat or drink anything as she just vomits everything. Patient states she has been prior which she was hospitalized many times for hyperemesis. She states she had a small bowel movement today and is passing flatus. She denies vaginal bleeding, dysuria or hematuria. 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 Smokes marijuana. Takes Percocet 60 mg daily. Family History: Denies Hospital Course, Patient was seen and examined at bedside. Patient was complaining of pain, on physical exam, patient did not exhibit abdominal tenderness. Patient's labs did not show elevated LFTs, patient continued vomiting on zofran and reglan alternating. Patient signed against medical advice because she was unhappy with not receiving dilaudid. - Date & Time of H&P Date of H&P: 06/02/17 Time of H&P: 15:19 Discharge Exam - Head Exam Head Exam: ATRAUMATIC, NORMAL INSPECTION, NORMOCEPHALIC - Eye Exam Eye Exam: EOMI, Normal appearance - ENT Exam ENT Exam: Mucous Membranes Moist, Normal Exam - Cardiovascular Exam Cardiovascular Exam: REGULAR RHYTHM, +S1, +S2 - GI/Abdominal Exam GI & Abdominal Exam: Distended, Soft. absent: Hypoactive Bowel Sounds, Tenderness - Extremities Exam Extremities exam: full ROM, normal capillary refill - Back Exam Back exam: FULL ROM - Neurological Exam Neurological exam: Alert, CN II-XII Intact, Normal Gait, Oriented x3, Reflexes Normal - Psychiatric Exam Psychiatric exam: Normal Affect - Skin Skin Exam: Dry, Intact, Normal Color, Warm Discharge Plan - Follow Up Plan Condition: STABLE Disposition: AGAINST MEDICAL ADVICE Additional Instructions: Discharge Hotline Numbers: [place] [facility] 24 Hour Hotline: 065-219 HELP (3158) [place] Addictions Services Hotline - AA- Alcoholics Anonymous 24 Hour Hotline: 0-300-267- 7446 NA- Narcotics Anonymous 24 Hour Hotline: [place] Quitline (cigarettes): If needed you can reach the detox unit at Avoid all mood and mind altering substances including alcohol. Make every effort to make 90 meetings in 90 days and obtain a sponsor and get involved in 12 step recovery. Follow up with you primary doctor for your medical needs Discharge Medications: Nutrition: Eat balanced meals incorporating fruits, vegetables and protein. Drink plenty of water throughout the day at least 8 to 10 cups. Sleep is extremely important in your recovery. Follow Up Appointments [facility] [address], [place] [address] Transportation: Friend <Uma Ceja - Last Filed: 06/03/17 17:44> Provider - Provider Date of Admission: 05/29/17 22:55 Attending physician: Uma Ceja MD Hospital Course - Lab Results Lab Results: Micro Results 05/31/17 20:00 Blood Blood Culture - Preliminary NO GROWTH AFTER 48 HOURS 05/31/17 19:30 Blood Blood Culture - Preliminary NO GROWTH AFTER 48 HOURS Most Recent Lab Values WBC 28.4 K/uL (4.8-10.8) H D 06/02/17 06:47 RBC 3.96 Mil/uL (3.80-5.20) 06/02/17 06:47 Hgb 12.2 g/dL (11.0-16.0) 06/02/17 06:47 Hct 36.2 % (34.0-47.0) 06/02/17 06:47 MCV 91.6 fL (81.0-99.0) 06/02/17 06:47 MCH 30.8 pg (27.0-31.0) 06/02/17 06:47 MCHC 33.7 g/dL (33.0-37.0) 06/02/17 06:47 RDW 13.8 % (11.5-14.5) 06/02/17 06:47 Plt Count 281 K/uL (130-400) 06/02/17 06:47 MPV 9.2 fL (7.2-11.7) 06/02/17 06:47 Neut % (Auto) 94.7 % (50.0-75.0) H 06/02/17 06:47 Lymph % (Auto) 3.1 % (20.0-40.0) L 06/02/17 06:47 [place] % (Auto) 1.9 % (0.0-10.0) 06/02/17 06:47 Eos % (Auto) 0.0 % (0.0-4.0) 06/02/17 06:47 Baso % (Auto) 0.3 % (0.0-2.0) 06/02/17 06:47 Neut # (Auto) 26.9 K/uL (1.8-7.0) H 06/02/17 06:47 Lymph # (Auto) 0.9 K/uL (1.0-4.3) L 06/02/17 06:47 [place] # (Auto) 0.5 K/uL (0.0-0.8) 06/02/17 06:47 Eos # (Auto) 0.0 K/uL (0.0-0.7) 06/02/17 06:47 Baso # (Auto) 0.1 K/uL (0.0-0.2) 06/02/17 06:47 Neutrophils % (Manual) 90 % (50-75) H 06/02/17 06:47 Lymphocytes % (Manual) 6 % (20-40) L 06/02/17 06:47 Monocytes % (Manual) 4 % (0-10) 06/02/17 06:47 Platelet Estimate Normal (NORMAL) 06/02/17 06:47 RBC Morphology Normal 06/02/17 06:47 Sodium 138 mmol/L (132-148) 06/02/17 06:47 Potassium 3.7 mmol/L (3.6-5.2) 06/02/17 06:47 Chloride 98 mmol/L (98-107) 06/02/17 06:47 Carbon Dioxide 22 mmol/L (22-30) 06/02/17 06:47 Anion Gap 21 (10-20) H 06/02/17 06:47 BUN 7 mg/dL (7-17) 06/02/17 06:47 Creatinine 0.5 mg/dL (0.7-1.2) L 03 06:47 Est GFR ( Amer) > 60 03 06:47 Est GFR (Non-Af Amer) > 60 06/02/17 06:47 Random Glucose 120 mg/dL (65-105) H 06/02/17 06:47 Calcium 9.4 mg/dl (8.6-10.4) 06/02/17 06:47 Phosphorus 3.1 mg/dL (2.5-4.5) 06/02/17 06:47 Magnesium 1.9 mg/dL (1.6-2.3) 06/02/17 06:47 Total Bilirubin 0.6 mg/dL (0.2-1.3) 06/02/17 06:47 AST 21 U/L (14-36) 06/02/17 06:47 ALT 25 U/L (9-52) 06/02/17 06:47 Alkaline Phosphatase 67 U/L (38-126) 06/02/17 06:47 Total Protein 8.7 g/dL (6.3-8.3) H 06/02/17 06:47 Albumin 4.6 g/dL (3.5-5.0) 06/02/17 06:47 Globulin 4.0 gm/dL (2.2-3.9) H 06/02/17 06:47 Albumin/Globulin Ratio 1.1 (1.0-2.1) 06/02/17 06:47 Beta HCG, Quant 8494.90 mIU/ML 06/02/17 06:47 Urine Color Yellow (YELLOW) 05/29/17 19:49 Urine Clarity Hazy (Clear) 05/29/17 19:49 Urine pH 6.0 (5.0-8.0) 05/29/17 19:49 Ur Specific [place] 1.019 (1.003-1.030) 05/29/17 19:49 Urine Protein Negative mg/dL (NEGATIVE) 05/29/17 19:49 Urine Glucose (UA) Normal mg/dL (Normal) 05/29/17 19:49 Urine Ketones Trace mg/dL (NEGATIVE) 05/29/17 19:49 Urine Blood Negative (NEGATIVE) 05/29/17 19:49 Urine Nitrate Negative (NEGATIVE) 05/29/17 19:49 Urine Bilirubin Negative (NEGATIVE) 05/29/17 19:49 Urine Urobilinogen 2.0 mg/dL (0.2-1.0) H 05/29/17 19:49 Ur Leukocyte Esterase Neg [place]anne/uL (Negative) 05/29/17 19:49 Urine WBC (Auto) < 1 /hpf (0-5) 05/29/17 19:49 Urine RBC (Auto) 1 /hpf (0-3) 05/29/17 19:49 Ur Squamous Epith Cells 3 /hpf (0-5) 05/29/17 19:49 Urine HCG, Qual Positive (NEGATIVE) 05/29/17 19:49 Urine Opiates Screen Negative (NEGATIVE) 05/29/17 19:49 Urine Methadone Screen Negative (NEGATIVE) 05/29/17 19:49 Ur Barbiturates Screen Negative (NEGATIVE) 05/29/17 19:49 Ur Phencyclidine Scrn Negative (NEGATIVE) 05/29/17 19:49 Ur Amphetamines Screen Negative (NEGATIVE) 05/29/17 19:49 U Benzodiazepines Scrn Negative (NEGATIVE) 05/29/17 19:49 U Oth Cocaine Metabols Negative (NEGATIVE) 05/29/17 19:49 U Cannabinoids Screen Positive (NEGATIVE) H 05/29/17 19:49 Alcohol, Quantitative < 10 mg/dl (0-10) 05/29/17 19:58 Attending/Attestation - Attestation I have personally seen and examined this patient.: Yes I have fully participated in the care of the patient.: Yes I have reviewed all pertinent clinical information, including history, physical exam and plan: Yes Notes (Text): Patient left AMA. I agree with the resident's documentation. Case discussed withe the resident
== END 2017-06-02 12:19 | disposition left against medical advice (07) | DRG 886 ==
LOC: C.ER 19:19 → C.7D 22:55 → C.6T 06-02 03:01
PROVIDERS: ADMIT Internal Medicine; ATTEND Internal Medicine
DX: O99.321 Drug use complicating pregnancy, first trimester (principal); O23.41 Unspecified infection of urinary tract in pregnancy, first trimester; F11.23 Opioid dependence with withdrawal; O99.111 Other diseases of the blood and blood-forming organs and certain disorders involving the immune mechanism complicating pregnancy, first trimester; D72.829 Elevated white blood cell count, unspecified; F12.20 Cannabis dependence, uncomplicated; O21.9 Vomiting of pregnancy, unspecified; F12.188 Cannabis abuse with other cannabis-induced disorder; Z3A.01 Less than 8 weeks gestation of pregnancy